=== PATIENT | male | born 1975 | race American Indian/Alaskan Native ===

== ENCOUNTER 2017-08-30 11:46 | Emergency (ER) | payer MEDICAID ==
--- NOTE | 2017-08-30 12:14 | ED PDOC ---
HPI: SOB/CHF/COPD Time Seen by Provider: 08/30/17 12:00 Chief Complaint (Nursing): Shortness Of Breath Chief Complaint (Provider): shortness of breath History Per: Patient History/Exam Limitations: no limitations Onset/Duration Of Symptoms: Hrs (2), Sudden Onset Current Symptoms Are (Timing): Better Exacerbating Factor(s): Exertion Current Respiratory Medications: See Home Med List Severity: Mild Recently: Treated By A Physician (CHRIS Tay) Additional Complaint(s): 42yo male c/o shortness of breath sudden onset this morning associated with fatigue. Checked his HR on his phone and was 59, then "jumped into 150s", takes amlodipine 10mg daily, took this am. Denies chest pain, leg pain/swelling, sycope, fever or flu like symptoms. States had echocardiogram about 2 years ago , states normal. Past Medical History Reviewed: Historical Data, Nursing Documentation, Vital Signs Vital Signs: Last Vital Signs Temp 98 F 08/30/17 11:48 Pulse 90 08/30/17 12:15 Resp 22 08/30/17 12:08 BP 153/92 H 08/30/17 11:48 Pulse Ox 79 L 08/30/17 12:15 - Medical History PMH: HTN - Surgical History Surgical History: No Surg Hx - Family History Family History: States: Unknown Family Hx - Living Arrangements Living Arrangements: With Family - Social History Current smoker - smoking cessation education provided: No Drugs: Denies - Allergies Allergies/Adverse Reactions: Allergies Allergy/AdvReac Type Severity Reaction Status Date / Time No Known Allergies Allergy Verified 02/20/15 06:32 Review of Systems Constitutional: Positive for: Weakness (generalized). Negative for: Fever Eyes: Negative for: Vision Change ENT: Negative for: Throat Pain, Throat Swelling Cardiovascular: Negative for: Chest Pain Respiratory: Positive for: Shortness of Breath. Negative for: Cough, Hemoptysis , Pleuritic Pain, Sputum, Wheezing Genitourinary Male: Negative for: Dysuria Musculoskeletal: Negative for: Neck Pain Skin: Negative for: Rash Neurological: Negative for: Weakness, Numbness, Headache, Dizziness Psych: Negative for: Anxiety, Depression Physical Exam - Reviewed Nursing Documentation Reviewed: Yes Vital Signs Reviewed: Yes - Physical Exam Appears: Positive for: Well, Non-toxic, No Acute Distress Head Exam: Positive for: ATRAUMATIC, NORMAL INSPECTION, NORMOCEPHALIC Skin: Positive for: Normal Color, Warm, DRY Eye Exam: Positive for: EOMI, Normal appearance, PERRL ENT: Positive for: Normal ENT Inspection. Negative for: Tonsillar Exudate, Tonsillar Swelling Neck: Positive for: Normal, Painless ROM Cardiovascular/Chest: Positive for: Regular Rate, Rhythm. Negative for: Bradycardia, Tachycardia Respiratory: Positive for: Normal Breath Sounds. Negative for: Decreased Breath Sounds Gastrointestinal/Abdominal: Positive for: Normal Exam, Bowel Sounds, Soft Back: Positive for: Normal Inspection Extremity: Positive for: Normal ROM Neurologic/Psych: Positive for: Alert, Oriented - Laboratory Results Result Diagrams: 08/30/17 12:15 08/30/17 12:15 - ECG ECG: Positive for: Interpreted By Me ECG Rhythm: Positive for: Sinus Rhythm, Nonspecific Changes Rate: 90 O2 Sat by Pulse Oximetry: 79 Pulse Ox Interpretation: Normal Medical Decision Making Medical Decision Making: workup for mild dyspnea initiated EKG and CXR reviewed labs reviewed, mild leukopenia trop neg x2 DDimer within normal range vitals remained stable no further symptoms HEART score 1 Has appt tomorrow am with PMD Continue BP meds as prior Rx, return to ER for any worse or new symptoms Disposition - Clinical Impression Clinical Impression: Dyspnea - Patient ED Disposition Is Patient to be Admitted: No Counseled Patient/Family Regarding: Studies Performed, Diagnosis, Need For Followup - Disposition Referrals: [facility] [Outside] Disposition: Routine/Home Disposition Time: 16:35 Condition: STABLE Additional Instructions: See clinic for further testing. Return to ER for any return of, worse or new symptoms/ Instructions: Shortness of Breath (Dyspnea) Forms: [employer] ([place])
[2017-08-30 12:43] LABS: BASO % 0.7 % (0.0-2.0); EOS # 0.2 K/uL (0.0-0.7); EOS % 4.7 % (0.0-4.0); HEMOGLOBIN 12.4 g/dL (12.0-18.0); LYMPH # 1.7 K/uL (1.0-4.3); LYMPH % 38.8 % (20.0-40.0); MEAN CELL VOLUME 88.7 fl (80.0-94.0); MEAN CORPUSCULAR HEMOGLOBIN 28.8 pg (27.0-31.0); MEAN CORPUSCULAR HGB CONC 32.4 g/dL (33.0-37.0); MEAN PLATELET VOLUME 9.4 fl (7.2-11.7); MONO # 0.5 K/uL (0.0-0.8); MONO % 10.6 % (0.0-10.0); NEUT # 1.9 K/uL (1.8-7.0); NEUT % 45.2 % (50.0-75.0); NRBC % 0.2 % (0.0-0.0); RBC 4.3 Mil/uL (4.40-5.90); RED CELL DISTRIBUTION WIDTH 12.7 % (11.5-14.5); WHITE BLOOD COUNT 4.3 K/uL (4.8-10.8)
[2017-08-30 12:49] LABS: ALB/GLOB RATIO 1.1 (1.0-2.1); ALT/SGPT 43 U/L (21-72); AST/SGOT 29 U/L (17-59); BLOOD UREA NITROGEN 8 mg/dl (9-20); CALCIUM 9.2 mg/dL (8.4-10.2); GFR AFRICAN-AMERICAN > 60; GFR NON-AFRICAN AMERICAN > 60; INR 1.1 (0.9-1.2); PROTHROMBIN TIME 12.4 Seconds (9.8-13.1)
[2017-08-30 13:02] LABS: B-TYPE NATRIURETIC PEPTIDE 32.9 pg/ml (0-450)
--- NOTE | 2017-08-30 14:22 | RAD ---
HISTORY: chest pain/ r/o infiltrate COMPARISON: 05/30/2012. TECHNIQUE: Chest PA and lateral FINDINGS: LUNGS: No active pulmonary disease. PLEURA: No significant pleural effusion identified. No pneumothorax apparent. CARDIOVASCULAR: No radiographic findings to suggest acute or significant cardiovascular disease. OSSEOUS STRUCTURES: No significant abnormalities. VISUALIZED UPPER ABDOMEN: Normal. OTHER FINDINGS: None. IMPRESSION: No active disease. No significant interval change compared to the prior examination(s).
[2017-08-30 16:19] LABS: BARBITURATES, UR NEGATIVE (NEGATIVE); BENZODIAZEPINES, UR NEGATIVE (NEGATIVE); OPIATES, UR NEGATIVE (NEGATIVE); PHENCYCLIDINE, UR NEGATIVE (NEGATIVE)
[2017-08-30 17:00] VITALS: BP 120/70; PULSE 80; RESP 20; TEMP 98.6; O2SAT 98
--- NOTE | 2017-08-31 08:31 | CARD ---
APPROVED REPORT EKG Measurement Heart [id number] <Conclusion> Normal sinus rhythm Normal ECG
== END 2017-08-30 17:00 | disposition home or self-care (01) ==
LOC: H.ER 11:46
DX: R06.00 Dyspnea, unspecified (principal); I10 Essential (primary) hypertension